=== PATIENT | female | born 1945 | race Caucasian/White ===

== ENCOUNTER → 2024-04-30 14:16 | Outpatient (REF) | payer OTHER, SELFPAY | LOC: REG 14:16 | PROVIDERS: ATTENDING PHYSICIAN Chiropractor; FAMILY PHYSICIAN Family Medicine | DX: M99.01 Segmental and somatic dysfunction of cervical region (principal) | CPT/HCPCS: 72052 ==

== ENCOUNTER → 2024-06-21 13:30 | Outpatient (REF) | payer OTHER, SELFPAY | LOC: MRI 3T 13:30 | PROVIDERS: ATTENDING PHYSICIAN Chiropractor; FAMILY PHYSICIAN Family Medicine | DX: M51.16 Intervertebral disc disorders with radiculopathy, lumbar region (principal) | CPT/HCPCS: 72148 ==

== ENCOUNTER 2025-01-29 14:22 | Emergency (ER) | payer OTHER, SELFPAY ==
[2025-01-29 14:30] VITALS: BP 166/91
[2025-01-29 14:55] LABS: % Basophils 0.8 % (0-2); % Eosinophils 6.9 % (0-6); % Immature Granulocytes 0.3 % (0-0.5); % Lymphocytes 24.1 % (20.5-51.1); % Monocytes 8.8 % (1.7-9.3); % Neutrophils 59.1 % (42.2-75.2); Absolute Basophils 0.1 10^3/uL (0-0.2); Absolute Eosinophils 0.4 10^3/uL (0-0.7); Absolute Lymphocytes 1.5 10^3/uL (1.2-3.4); Absolute Monocytes 0.6 10^3/uL (0.1-0.6); Absolute Neutrophils 3.8 10^3/uL (1.4-6.5); Hematocrit 38.9 % (37.0-47.0); Hemoglobin 13.3 g/dL (12.0-16.0); Mean Corp Hgb Conc. 34.2 g/dL (33.0-37.0); Mean Corpuscular Hgb 33.7 pg (27.0-31.0); Mean Corpuscular Volume 98.5 fL (81.0-99.0); Mean Platelet Volume 8.7 fL (7.4-10.4); Nucleated Red Blood Cells % 0 %; Platelet Count 216 10^3/uL (130-400); Red Blood Cell Count 3.95 10^6/uL (4.20-5.40); Red Cell Dist. Width 12.4 % (11.5-14.5); White Blood Cell Count 6.4 10^3/uL (4.8-10.8)
[2025-01-29 15:50] LABS: ALT (SGPT) 21 U/L (0-35); AST (SGOT) 25 U/L (14-36); Albumin 4.4 g/dl (3.5-5.0); Alkaline Phosphatase 57 U/L (38-126); Blood Urea Nitrogen 16 mg/dl (7-17); Calcium 9.5 mg/dl (8.4-10.2); Chloride 101 mmol/L (98-107); Glucose 110 mg/dl (70-99); Sodium 135 mmol/L (135-145); Total Bilirubin 0.7 mg/dl (0.2-1.3); Total Protein 7.2 g/dl (6.3-8.2); eGFR > 60.00
[2025-01-29 15:55] LABS: Troponin I < 0.012 ng/ml
[2025-01-29 16:13] LABS: Carbon Dioxide 26 mmol/L (22-30)
[2025-01-29 16:31] VITALS: BP 165/72
[2025-01-29 17:00] VITALS: BP 152/70
[2025-01-29 18:00] VITALS: BP 165/81
[2025-01-29 18:14] LABS: Troponin I < 0.012 ng/ml
--- NOTE | 2025-01-29 18:29 | ED.GENMED ---
History of Present Illness
General
Chief Complaint: Chest Pain
Time Seen by Provider: 01/29/25 16:27
History of Present Illness
History of Present Illness:
79-year-old female presents the emergency department for evaluation of abrupt onset of anterior/substernal chest pain radiating to the throat that began approximately 1 PM today while riding her horse. She has had this type of pain frequently in
the past for many years, she was told it may be an esophageal spasm. She notes that this episode resulted in diaphoresis and pallor and near syncope. She feels well now and has not had any symptoms since arriving to the ED. Is never seek out
medical evaluation for the symptoms. No current shortness of breath or fevers
Past History
Past History
ED Past Medical History: Hypothyroidism
Social History
Tobacco: Non-smoker
Personal:
Living: with family
Review of Systems
Review of Systems
Allergies reviewed?: Yes
All Other Systems: ROS reviewed and negative except as documented in HPI and ROS
Phy Exam
Physical Exam
Physical Exam:
GEN: Well appearing, NAD, WDWN
HEENT: Oral mucosa moist, no scleral icterus
Cardiac: Regular rate and rhythm, no murmurs
Lung: No respiratory distress, no tachypnea
MSK: No gross deformity or injuries
Skin: Good color, no pallor or jaundice, no rashes
Neuro: AO x3, moves all extremities freely
Psych: Calm, cooperative
Scores
Heart Score for Chest Pain Patients
STEMI patient?: No
History: Slightly or Non-Suspicious
ECG: Normal
Age: >/= 65 years
Risk Factors: 1 or 2 Risk Factors
Troponin: </= Normal Limit
Heart Score for Chest Pain Patients: 3
Heart Score Risk: 2.5% MACE over next 6 weeks
Course
Orders/Labs/Results
Orders:
Orders
01/29/25 14:29
Electrocardiogram (*1) Urgent
Reason for Study: Chest Pain
EKG- Treatment ONCE
01/29/25 14:45
Complete Blood Count/With Diff Urgent
01/29/25 15:24
Comprehensive Metabolic Panel Urgent
Troponin I Urgent
01/29/25 17:29
EKG- Treatment ONCE
01/29/25 17:35
Troponin I Urgent
01/29/25 17:45
Electrocardiogram (*1) Urgent
Reason for Study: Chest Pain
Abnormal Lab Results
01/29/25 01/29/25
14:45 15:24
RBC 3.95 L 10^6/uL
(4.20-5.40)
MCH 33.7 H pg
(27.0-31.0)
Eosinophils % 6.9 H %
(0-6)
Glucose 110 H mg/dl
(70-99)
01/29/25 14:45
01/29/25 15:24
Vital Signs
Initial and Last Documented VS:
Initial Vital Signs
Temp Pulse Resp BP Pulse Ox
97.7 F 77 20 166/91 100
01/29/25 14:30 01/29/25 14:30 01/29/25 14:30 01/29/25 14:30 01/29/25 14:30
Last Documented Vital Signs
Temp Pulse Resp BP Pulse Ox
97.7 F 77 17 165/81 97
01/29/25 14:30 01/29/25 18:30 01/29/25 18:15 01/29/25 18:00 01/29/25 18:30
MDM/Problems Addressed
MDM/Problems Addressed:
Workup is revealing. Will refer to cardiology as an outpatient although this event does not sound concerning for ACS
*Critical Care Note
Total Time (30-74mins, 75-104mins- exclusive of procedures): Not Applicable
ED Attending Note
-
Portions of this chart may have been created with voice recognition software.� Occasional wrong word or��sound alike� substitutions may have occurred due to the inherent limitations of voice recognition software.
Discharge Plan
Departure
Patient Disposition: Home (Routine Discharge)
Date of Disposition: 01/29/25
Time of Disposition: 18:30
Patient with high blood pressure during this ER visit?: No
Discharge Problem:
Atypical chest pain
Instructions: Chest Pain CBC Follow Up
Prescriptions:
No Action
doxycycline hyclate 100 MG capsule
100 mg PO DAILY
levothyroxine 25 MCG tablet
25 mcg PO DAILY
Referrals:
Clyde Calderon MD [Family Provider] -
Perla Douglass MD [Active] -
Interventions
Interventions:
*Risk Screen - Suicide Last Done: 01/29/25 14:30
*General Assessment Last Done: 01/29/25 16:40
*Neglect/Abuse Screening Last Done: 01/29/25 16:40
*ED- Fall Risk Assessment Last Done: 01/29/25 16:40
*ED COVID-19 Vaccine History Last Done: 01/29/25 16:40
*Nursing Disposition Last Done: 01/29/25 18:35
ED- Cardiac Assessment Last Done: 01/29/25 16:37
Discharge Date and Time
Discharge Date/Time: 01/29/25 18:35
Print Language: DJIBOUTIAN
== END 2025-01-29 18:35 | disposition home or self-care (01) ==
LOC: EMR 14:22
PROVIDERS: Physician Assistant; Student in an Organized Health Care Education/Training Program; EMERGENCY PHYSICIAN Emergency Medicine; FAMILY PHYSICIAN Family Medicine
DX: R07.89 Other chest pain (principal); E03.9 Hypothyroidism, unspecified
CPT/HCPCS: 99283; 80053; 84484; 85025; 93005

== ENCOUNTER 2025-03-07 17:07 | Emergency (ER) | payer OTHER, SELFPAY ==
[2025-03-07 17:08] VITALS: BP 151/83
[2025-03-07 17:23] VITALS: BMI 29.5
--- NOTE | 2025-03-07 17:40 | ED.GENMED ---
History of Present Illness
General
Chief Complaint: Skin Surface Trauma
Source: patient and spouse
Time Seen by Provider: 03/07/25 17:33
History of Present Illness
History of Present Illness:
79-year-old female accidentally suffered a skin avulsion while using a sheldon to peel squash. This happened just prior to presentation. Patient states she is up-to-date on her tetanus. She denies numbness, tingling, or other complaints. She
notes that she cannot get the bleeding to stop which prompted her visit here. Otherwise no complaints.
Past History
Past History
ED Past Medical History: Hypothyroidism
Social History
Tobacco: Non-smoker
Drug: None
Personal:
Living: with family
Phy Exam
Physical Exam
Physical Exam:
GENERAL: Alert , in no apparent distress
EYE: pupils equal and reactive
NECK: Supple
ENT: o/p clr, mmm.
CARDIAC: Regular rate and rhythm .
LUNGS: Clear breath sounds bilaterally, no acute respiratory distress, no wheezes/rales/rhonchi
NEUROLOGICAL: Alert and oriented, nonfocal
SKIN: Warm and dry, skin intact except for a 1 cm shallow skin avulsion noted at the right third digit/middle finger, distal aspect lateral radial aspect with slight ooze. No nail involvement. Full range of motion, strength and sensation intact.
MUSCULOSKELETAL: No edema, well perfused.
PSYCH: Normal and appropriate interaction.
Course
Vital Signs
Initial and Last Documented VS:
Initial Vital Signs
Temp Pulse Resp BP Pulse Ox
98.2 F 87 16 151/83 95
03/07/25 17:08 03/07/25 17:08 03/07/25 17:08 03/07/25 17:08 03/07/25 17:08
Last Documented Vital Signs
Temp Pulse Resp BP Pulse Ox
98.2 F 87 16 151/83 95
03/07/25 17:08 03/07/25 17:08 03/07/25 17:08 03/07/25 17:08 03/07/25 17:08
*Critical Care Note
Total Time (30-74mins, 75-104mins- exclusive of procedures): Not Applicable
Update Note
Update Note:
Patient presents to the Emergency Department with injury to finger with sheldon
Number and Complexity of Problems Addressed at the Encounter
� Chronic conditions affecting care:
� Acute Exacerbation and/or Progression of Chronic Illness:
� Differential Diagnosis includes: But not limited to skin avulsion, tendon injury, fracture, laceration, etc. etc.
Amount and/or Complexity of Data to be Reviewed and Analyzed
� I performed an independent evaluation of and my interpretation is:
EKG:
CT:
Xrays:
Laboratory Studies:
Other:
� Review of other/old records reveals:
� Clinical information was obtained by an independent historian:
� Prescriptions/Medications Considered but not given:
� Further testing considered but not performed:
Risk of Complications and/or Morbidity or Mortality of Patient Management
� Social determinants of health affecting care:
� Discussion with other providers (PCP, Hospitalists, Consultants, etc):
� Escalation of care including admission/observation vs risk of discharge considered: Wound was cleaned and irrigated. Gelfoam was applied with resolution of slow ooze of blood. Finger was dressed, discussed with patient and
.
ED Attending Note
-
Portions of this chart may have been created with voice recognition software.� Occasional wrong word or��sound alike� substitutions may have occurred due to the inherent limitations of voice recognition software.
Discharge Plan
Departure
Patient Disposition: Home (Routine Discharge)
Date of Disposition: 03/07/25
Time of Disposition: 17:40
Patient with high blood pressure during this ER visit?: Yes
Condition: Good
Discharge Problem:
Avulsion of skin
Instructions: Wound care - ED discharge instructions, BLOOD PRESSURE
Prescriptions:
No Action
doxycycline hyclate 100 MG capsule
100 mg PO DAILY
levothyroxine 25 MCG tablet
25 mcg PO DAILY
Referrals:
UNKNOWN - PT DOES,NOT KNOW [Unknown Provider] -
Activity Restrictions/Additional Instructions:
PLEASE CHANGE THE DRESSING ONCE A DAY CAREFULLY, MONITORING FOR SIGNS OF INFECTION WHICH INCLUDES REDNESS, WARMTH, SWELLING, PAIN, DRAINAGE, FEVER. IF THIS OR OTHER WORRISOME SIGNS DEVELOP, PLEASE RETURN TO THE ER IMMEDIATELY. YOU HAD AN AVULSION
OF YOUR DISTAL FINGERTIP, AND GELFOAM WAS APPLIED. THIS WILL NATURALLY FALL OFF IN THE NEXT FEW DAYS. PLEASE AVOID GETTING THIS AREA WET.
Interventions
Interventions:
*Risk Screen - Suicide Last Done: 03/07/25 17:10
*General Assessment Last Done: 03/07/25 17:24
*Neglect/Abuse Screening Last Done: 03/07/25 17:10
*ED- Fall Risk Assessment Last Done: 03/07/25 17:24
*ED COVID-19 Vaccine History Last Done: 03/07/25 17:24
ED-Skin Assessment Last Done: 03/07/25 17:24
Discharge Date and Time
Print Language: SPANISH
== END 2025-03-07 17:48 | disposition home or self-care (01) ==
LOC: EMR 17:07
PROVIDERS: EMERGENCY PHYSICIAN Emergency Medicine; FAMILY PHYSICIAN Family Medicine
DX: S61.202A Unspecified open wound of right middle finger without damage to nail, initial encounter (principal); W27.8XXA Contact with other nonpowered hand tool, initial encounter; E03.9 Hypothyroidism, unspecified
CPT/HCPCS: 99282